=== PATIENT | female | born 1975 | race Caucasian/White ===

== ENCOUNTER 2021-11-25 08:51 | Emergency (ER) | payer OTHER ==
[~2021-11-25] VITALS: Ht 170 cm; Wt 71.6 kg
[2021-11-25] MEDS ORDERED: AMOX1TAB12 PO (09:44)
--- NOTE | 2021-11-25 09:44 | ED Integumentary General ---
General Chief Complaint: Lower Extremity Stated Complaint: DOG BITE RIGHT LEG Nursing Triage Note: PT PRESENTS TO ED VIA POV FROM HOME WITH COMPLAINTS OF R LOWER LEG WOUND AFTER DOG BITE LAST THURSDAY. PT REPORTS SHE HAS NOT SOUGHT CARE FOR IT UNTIL TODAY. PT NOTICED THE PAST FEW DAYS IT APPEARED MORE RED AND HAD INCREASED DRAINAGE. Source: patient Exam Limitations: no limitations History of Present Illness Date Seen by Provider: Nov 25, 2021 Time Seen by Provider: 09:31 Initial Comments Patient is a 46-year-old female who presents to the emergency department today with complaint of a dog bite that occurred on of last week. 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 She states it is very painful. It was draining yesterday. She actually states it looks a little bit better today but was concerned about infection. Patient reports the dog was up-to-date on rabies vaccination. No chronic medical conditions. She does not recall her last tetanus shot. All other review of systems reviewed and negative except as stated. Timing/Duration: week Location: extremities (rLE) Possible Cause: other (Dog bite) Associated Symptoms: other (Painful) Allergies and Home Medications Allergies Coded Allergies: No Known Drug Allergies (Unverified , 11/25/21) Patient Home Medication List Home Medication List Reviewed: Yes Amoxicillin/Potassium Clav (Amox Tr-K Clv 875-125 mg Tab) 875 Mg-125 Mg Tablet, 1 EACH PO BID Prescribed by: ISHA AREVALO on 11/25/21 0944 Review of Systems Review of Systems Constitutional: see HPI EENTM: no symptoms reported Respiratory: no symptoms reported Cardiovascular: no symptoms reported Gastrointestinal: no symptoms reported Genitourinary: no symptoms reported Musculoskeletal: other (Leg pain right proximal lower) Skin: other All Other Systems Reviewed Negative Unless Noted: Yes (Skin wound from dog) Past Jfaqfvn-Yrqcaf-Edkhcz Hx Patient Social History Tobacco Use?: Yes Tobacco type used: Cigarettes Smoking Status: Current Everyday Smoker Substance use?: No Alcohol Use?: Yes Alcohol Frequency: Once in a while Pt feels they are or have been: No Physical Exam Vital Signs Vital Signs - First Documented 11/25/21 09:26 Temp 37.4 Pulse 74 Resp 16 B/P (MAP) 126/83 (97) Pulse Ox 96 Capillary Refill : Less Than 3 Seconds General Appearance: WD/WN, no apparent distress Cardiovascular: regular rate, rhythm Respiratory: lungs clear, normal breath sounds, no respiratory distress, no accessory muscle use Extremities: normal range of motion, other (Ecchymosis right proximal lateral lower extremity with central skin wound that is triangular approximately a centimeter in diameter, no fluctuance. No active drainage; surrounding erythema) Neurologic/Psychiatric: alert, normal mood/affect, oriented x 3 Skin: normal color, warm/dry, other (as above) Progress/Results/Core Measures Results/Orders My Orders Orders - ISHA AREVALO MD Tibia/Fibula, Right, 2 Views (11/25/21 09:38) Dipht,Pertuss(Acell),Tet Adult (Boostrix (11/25/21 09:45) Vital Signs/I&O 11/25/21 09:26 Temp 37.4 Pulse 74 Resp 16 B/P (MAP) 126/83 (97) Pulse Ox 96 Blood Pressure Mean: 97 Diagnostic Imaging Diagonstic Imaging: Xray Comments NAME: MAYNOR ANTUNEZ MED REC#: [id number] PT STATUS: REG ER : 1975 PHYSICIAN: ISHA AREVALO MD ADMIT DATE: 11/25/21/ER Draft Date of Exam:11/25/21 TIBIA/FIBULA, RIGHT, 2 VIEWS INDICATION: Dog bite, right leg pain. TECHNIQUE: AP and lateral views of the right tibia and fibula were obtained. FINDINGS: No fracture or acute bony abnormality is seen. There is no erosive bony lesion. There is no radiopaque foreign body. IMPRESSION: No evidence of fracture or radiopaque foreign body. Dictated on workstation # [id number] Dict: 11/25/21 1005 Trans: 11/25/21 1007 [id number] Interpreted by: LEV LOPEZ MD Electronically signed by: Departure Impression Primary Impression: Dog bite of right lower leg with infection Qualified Codes: S81.851A - Open bite, right lower leg, initial encounter; L08.9 - Local infection of the skin and subcutaneous tissue, unspecified; W54.0XXA - Bitten by dog, initial encounter Disposition: 01 HOME, SELF-CARE Condition: Stable Departure-Patient Inst. Decision time for Depature: 09:42 Referrals: NO,LOCAL PHYSICIAN (PCP/Family) Primary Care Physician Patient Instructions: Wound Infection Add. Discharge Instructions: Continue to wash gently with soap and water. You can continue to apply a little triple antibiotic ointment twice a day for the next couple of days. Augmentin 875 mg twice a day for 5 days. Alternate ibuprofen and/or Tylenol as needed for pain. Return to the emergency department for increasing redness, swelling, drainage or fever. Scripts Amoxicillin/Potassium Clav (Amox Tr-K Clv 875-125 mg Tab) 875 Mg-125 Mg Tablet 1 EACH PO BID for 5 Days, #10 TAB Prov: ISHA AREVALO MD 11/25/21 ISHA AREVALO MD Nov 25, 2021 09:44
[2021-11-25] MEDS ORDERED: TETANUS,DIPTH,PERTUSS P/F (BOOSTRIX) 0.5 ML VIAL IM ONE (09:45)
--- NOTE | 2021-11-25 10:07 | Diagnostic Imaging Report ---
INDICATION: Dog bite, right leg pain. TECHNIQUE: AP and lateral views of the right tibia and fibula were obtained. FINDINGS: No fracture or acute bony abnormality is seen. There is no erosive bony lesion. There is no radiopaque foreign body. IMPRESSION: No evidence of fracture or radiopaque foreign body. Dictated by: Dictated on workstation # [id number]
[2021-11-25 10:25] VITALS: BP 126/83
== END 2021-11-25 10:24 | disposition home or self-care (01) ==
LOC: ER 08:55
DX: S81.851A Open bite, right lower leg, initial encounter (principal); L08.9 Local infection of the skin and subcutaneous tissue, unspecified; F17.210 Nicotine dependence, cigarettes, uncomplicated; Z23 Encounter for immunization; W54.0XXA Bitten by dog, initial encounter
CPT/HCPCS: 73590; 90715